=== PATIENT | male | born 1960 | race Two or more races ===

== ENCOUNTER 2019-03-14 14:45 | Inpatient (IN) | payer MEDICAID, MEDICARE, OTHER ==
[~2019-03-14] VITALS: Ht 167.6 cm; Wt 99.6 kg
[2019-03-14 15:12] VITALS: BP 125/88
[2019-03-14] MEDS ORDERED: NITROGLYCERIN 0.4MG TABLET SL SL PRN ×3 (15:15→23:30)
[2019-03-14] MEDS ORDERED: ACETAMINOPHEN 325MG TABLET PO PRN (15:15)
[2019-03-14] MEDS ORDERED: ALPRAZOLAM 0.25 MG TABLET PO PRN (15:15)
[2019-03-14 15:17] VITALS: BP 125/88
[2019-03-14 16:00] VITALS: BP 110/68
[2019-03-14 16:16] LABS: CLARITY URINE CLEAR (CLEAR); COLOR URINE YELLOW (YELLOW); KETONES URINE NEGATIVE (NEGATIVE); LEUKOCYTE ESTERASE URINE NEGATIVE (NEGATIVE); NITRITE URINE NEGATIVE (NEGATIVE); OCCULT BLOOD URINE NEGATIVE (NEGATIVE); PH URINE 5.5 (4.5-8.0); PROTEIN URINE NEGATIVE (NEGATIVE); SPECIFIC GRAVITY URINE 1.012 (1.005-1.030)
[2019-03-14] MEDS: FUROSEMIDE 40MG/4ML VIAL IVP SCH (16:39)
[2019-03-14] MEDS: SPIRONOLACTONE 25MG TABLET PO SCH (16:39)
[2019-03-14] MEDS ORDERED: DEXTROSE 50% WATER 50ML SYRINGE IV PRN (16:45)
[2019-03-14] MEDS ORDERED: HYDROCODONE/ACETAMINOPHEN 5/325MG TABLET PO PRN (16:45)
[2019-03-14] MEDS ORDERED: ONDANSETRON HCL 4MG/2ML INJ IV PRN ×2 (16:45→23:30)
[2019-03-14] MEDS ORDERED: IPRATROPIUM/ALBUTEROL 0.5-3(2.5)MG/3ML NEB HHN PRN (16:45)
[2019-03-14] MEDS ORDERED: HEPARIN 25,000 UNITS PREMIX 500 ML IV SCH (17:15)
[2019-03-14] MEDS: BLOOD SUGAR DIAGNOSTIC STRIP TEST SCH ×2 (17:19→21:00)
[2019-03-14] MEDS: INSULIN LISPRO 100 UNITS/ML SUBCUT SCH ×2 (17:24→21:00)
[2019-03-14 18:00] VITALS: BP 98/64
[2019-03-14] MEDS ORDERED: PIPERACILLIN/TAZOBACTAM 3.375GM/50ML PREMIX IV SCH (18:00)
[2019-03-14 20:00] VITALS: BP 112/74
[2019-03-14] MEDS ORDERED: PIPERACILLIN/TAZOBACTAM 3.375 G in DEXT 5% WATER 100 ML IV SCH (20:30)
[2019-03-14] MEDS: ATORVASTATIN CALCIUM 40MG TABLET PO SCH (20:59)
[2019-03-14] MEDS ORDERED: VANCOMYCIN 2,000 MG in DEXT 5% WATER 500 ML IV SCH (21:00)
[2019-03-14] MEDS: CARVEDILOL 3.125 MG TABLET PO SCH (21:00)
[2019-03-14] MEDS ORDERED: FAMOTIDINE 20MG TABLET PO SCH (21:00)
[2019-03-14] MEDS ORDERED: ATORVASTATIN CALCIUM 10MG TABLET PO SCH (21:00)
[2019-03-14 21:11] LABS: CHLORIDE 102 mEq/L (98-107)
[2019-03-14] MEDS ORDERED: FAMOTIDINE 40MG TABLET PO SCH (21:13)
[2019-03-14 21:18] LABS: INR 1.2; PARTIAL THROMBOPLASTIN TIME 26.8 sec (23.4-31.0); PROTHROMBIN TIME 12.4 sec (9.6-11.0)
[2019-03-14 22:00] VITALS: BP 98/74
[2019-03-14 22:08] LABS: BASOPHILS % 0.6 % (0.0-2.0); EOSINOPHILS % 0.9 % (0.0-5.0); HEMATOCRIT. 45.4 % (42.0-52.0); HEMOGLOBIN. 15.1 g/dL (14.0-18.0); LYMPHOCYTES % 16.4 % (20.0-50.0); MEAN CORPUSCULAR HEMOGLOBIN 29.8 pg (28.0-32.0); MEAN CORPUSCULAR VOLUME 89.6 fL (80.0-94.0); MEAN PLATELET VOLUME 9.2 fl (7.4-10.4); MONOCYTES % 9.8 % (2.0-8.0); NEUTROPHILS % 72.3 % (40.0-76.0); PLATELET 214 x1000/uL (130-400); RED BLOOD CELL COUNT 5.07 mill/uL (4.7-6.1); RED CELL DISTRIBUTION WIDTH 13.9 % (11.6-14.6)
[2019-03-14] MEDS: HEPARIN BOLUS PRN aPTT <30 IV (22:29)
[2019-03-14] MEDS: HEPARIN 25,000 UNITS PREMIX 500 ML IV SCH (22:35)
[2019-03-14] MEDS: AMMONIUM LACTATE 12% LOTION 240ML TOP SCH (22:47)
[2019-03-14] MEDS ORDERED: NA PHOS,M-B/NA PHOS,DI-BA ENEMA 118ML PR PRN (23:30)
[2019-03-14] MEDS ORDERED: MORPHINE SULFATE 4 MG/ML CPJ (NOT FOR IM USE) IV PRN (23:30)
[2019-03-14] MEDS ORDERED: LORAZEPAM 0.5MG TABLET PO PRN (23:30)
[2019-03-14] MEDS ORDERED: IPRATROPIUM/ALBUTEROL 0.5-3(2.5)MG/3ML NEB NEB PRN (23:30)
[2019-03-14] MEDS ORDERED: TRAMADOL 50MG TABLET PO PRN (23:30)
[2019-03-14] MEDS ORDERED: GUAIFENESIN 200MG/10ML SUGAR FREE UDC PO PRN (23:30)
[2019-03-14] MEDS ORDERED: DOCUSATE SODIUM 100MG CAPSULE PO PRN (23:30)
[2019-03-14] MEDS ORDERED: CLONIDINE 0.1MG TABLET PO PRN (23:30)
[2019-03-14] MEDS ORDERED: ZOLPIDEM TARTRATE 5MG TABLET PO PRN (23:30)
[2019-03-14] MEDS ORDERED: MAGNESIUM/ALUMINUM HYDROXIDE/SIMETHICONE 30ML UDC PO PRN (23:30)
[2019-03-14] MEDS ORDERED: DIPHENHYDRAMINE 50MG/ML VIAL IV PRN (23:30)
[2019-03-15] VITALS (12 sets, daily range): BP systolic 95–127; BP diastolic 57–91
[2019-03-15] MEDS: PIPERACILLIN/TAZOBACTAM 3.375 G in DEXT 5% WATER 100 ML IV SCH ×4 (02:54→22:59)
[2019-03-15 04:49] LABS: BASOPHILS % 0.8 % (0.0-2.0); EOSINOPHILS % 1.7 % (0.0-5.0); HEMATOCRIT. 44.3 % (42.0-52.0); HEMOGLOBIN. 14.7 g/dL (14.0-18.0); LYMPHOCYTES % 19.1 % (20.0-50.0); MEAN CORPUSCULAR HEMOGLOBIN 29.9 pg (28.0-32.0); MEAN CORPUSCULAR VOLUME 89.8 fL (80.0-94.0); MEAN PLATELET VOLUME 9.4 fl (7.4-10.4); MONOCYTES % 8.8 % (2.0-8.0); NEUTROPHILS % 69.6 % (40.0-76.0); PLATELET 187 x1000/uL (130-400); RED BLOOD CELL COUNT 4.93 mill/uL (4.7-6.1)
[2019-03-15 04:59] LABS: CHLORIDE 102 mEq/L (98-107)
[2019-03-15] MEDS: HEPARIN BOLUS PRN aPTT <30 IV (06:10)
[2019-03-15] MEDS: BLOOD SUGAR DIAGNOSTIC STRIP TEST SCH ×4 (06:20→22:42)
[2019-03-15] MEDS: FUROSEMIDE 40MG/4ML VIAL IVP SCH (08:06)
[2019-03-15] MEDS: INSULIN LISPRO 100 UNITS/ML SUBCUT SCH ×4 (08:06→22:58)
[2019-03-15] MEDS: PANTOPRAZOLE SODIUM 40 MG/VIAL IV SCH (08:06)
[2019-03-15] MEDS: NICOTINE 14MG PATCH TD SCH (08:07)
[2019-03-15] MEDS: AMMONIUM LACTATE 12% LOTION 240ML TOP SCH ×2 (08:07→16:18)
[2019-03-15] MEDS: LISINOPRIL 10MG TABLET PO SCH (08:23)
[2019-03-15] MEDS: CARVEDILOL 3.125 MG TABLET PO SCH ×2 (08:23→22:56)
[2019-03-15] MEDS ORDERED: VANCOMYCIN 750 MG PREMIX 150 ML IV SCH (09:00)
[2019-03-15] MEDS: ASPIRIN 81MG EC TABLET PO SCH ×2 (09:00→14:07)
[2019-03-15] MEDS: SPIRONOLACTONE 25MG TABLET PO SCH (09:11)
[2019-03-15] MEDS: NITROGLYCERIN 0.1MG/HR PATCH TOP SCH (11:00)
[2019-03-15] MEDS ORDERED: MAGNESIUM 4 G PREMIX 100 ML IV NR (15:00)
[2019-03-15] MEDS: HEPARIN BOLUS PRN aPTT 30-44 IV ×2 (15:12→22:28)
[2019-03-15] MEDS: FUROSEMIDE 100MG/10ML VIAL IVP SCH (16:17)
[2019-03-15] MEDS: VANCOMYCIN 1250MG in DEXTROSE 5% WATER 250ML IV SCH ×2 (17:04→22:06)
[2019-03-15] MEDS: HEPARIN 25,000 UNITS PREMIX 500 ML IV SCH (20:12)
[2019-03-15] MEDS: ATORVASTATIN CALCIUM 40MG TABLET PO SCH (22:55)
[2019-03-16] VITALS (13 sets, daily range): BP systolic 92–143; BP diastolic 17–88
[2019-03-16] MEDS: PIPERACILLIN/TAZOBACTAM 3.375 G in DEXT 5% WATER 100 ML IV SCH ×4 (03:27→20:04)
[2019-03-16] MEDS: BLOOD SUGAR DIAGNOSTIC STRIP TEST SCH ×4 (06:17→21:00)
[2019-03-16 06:25] LABS: CHLORIDE 98 mEq/L (98-107)
[2019-03-16 06:52] LABS: BASOPHILS % 0.6 % (0.0-2.0); EOSINOPHILS % 2.2 % (0.0-5.0); HEMATOCRIT. 44.5 % (42.0-52.0); LYMPHOCYTES % 18.6 % (20.0-50.0); MEAN CORPUSCULAR HEMOGLOBIN 29.9 pg (28.0-32.0); MEAN CORPUSCULAR VOLUME 88.7 fL (80.0-94.0); MONOCYTES % 10.1 % (2.0-8.0); NEUTROPHILS % 68.5 % (40.0-76.0); PLATELET 215 x1000/uL (130-400); RED BLOOD CELL COUNT 5.02 mill/uL (4.7-6.1); RED CELL DISTRIBUTION WIDTH 13.7 % (11.6-14.6)
[2019-03-16] MEDS: FUROSEMIDE 100MG/10ML VIAL IVP SCH ×2 (07:02→17:33)
[2019-03-16] MEDS: INSULIN LISPRO 100 UNITS/ML SUBCUT SCH ×4 (07:40→21:16)
[2019-03-16] MEDS: AMMONIUM LACTATE 12% LOTION 240ML TOP SCH ×2 (08:47→17:00)
[2019-03-16] MEDS: NITROGLYCERIN 0.1MG/HR PATCH TOP SCH (08:47)
[2019-03-16] MEDS: NICOTINE 14MG PATCH TD SCH (08:47)
[2019-03-16] MEDS: VANCOMYCIN 1250MG in DEXTROSE 5% WATER 250ML IV SCH ×2 (08:47→21:15)
[2019-03-16] MEDS: ASPIRIN 81MG EC TABLET PO SCH (08:47)
[2019-03-16] MEDS: PANTOPRAZOLE SODIUM 40 MG/VIAL IV SCH (08:47)
[2019-03-16] MEDS: SPIRONOLACTONE 25MG TABLET PO SCH (08:48)
[2019-03-16] MEDS: LISINOPRIL 10MG TABLET PO SCH (08:48)
[2019-03-16] MEDS: CARVEDILOL 3.125 MG TABLET PO SCH ×2 (08:48→21:16)
[2019-03-16] MEDS ORDERED: MAGNESIUM 4 G PREMIX 100 ML IV NR (12:00)
[2019-03-16] MEDS: HEPARIN 25,000 UNITS PREMIX 500 ML IV SCH (13:36)
[2019-03-16] MEDS: HEPARIN BOLUS PRN aPTT 30-44 IV (13:43)
[2019-03-16] MEDS: ATORVASTATIN CALCIUM 40MG TABLET PO SCH (21:15)
[2019-03-17] VITALS (12 sets, daily range): BP systolic 97–122; BP diastolic 61–78
[2019-03-17] MEDS: PIPERACILLIN/TAZOBACTAM 3.375 G in DEXT 5% WATER 100 ML IV SCH ×4 (02:52→21:19)
[2019-03-17] MEDS: HEPARIN 25,000 UNITS PREMIX 500 ML IV SCH ×2 (04:02→19:18)
[2019-03-17] MEDS: BLOOD SUGAR DIAGNOSTIC STRIP TEST SCH ×4 (06:34→21:00)
[2019-03-17] MEDS: FUROSEMIDE 100MG/10ML VIAL IVP SCH (08:03)
[2019-03-17] MEDS: INSULIN LISPRO 100 UNITS/ML SUBCUT SCH ×4 (08:04→21:15)
[2019-03-17] MEDS: NITROGLYCERIN 0.1MG/HR PATCH TOP SCH (08:47)
[2019-03-17] MEDS: NICOTINE 14MG PATCH TD SCH (08:47)
[2019-03-17] MEDS: PANTOPRAZOLE SODIUM 40 MG/VIAL IV SCH (08:47)
[2019-03-17] MEDS: VANCOMYCIN 1250MG in DEXTROSE 5% WATER 250ML IV SCH ×2 (08:47→22:30)
[2019-03-17] MEDS: ASPIRIN 81MG EC TABLET PO SCH (08:48)
[2019-03-17] MEDS: CARVEDILOL 3.125 MG TABLET PO SCH ×2 (08:48→21:00)
[2019-03-17] MEDS: LISINOPRIL 10MG TABLET PO SCH (08:49)
[2019-03-17] MEDS: AMMONIUM LACTATE 12% LOTION 240ML TOP SCH ×2 (08:50→17:00)
[2019-03-17] MEDS: SPIRONOLACTONE 25MG TABLET PO SCH (08:51)
[2019-03-17] MEDS ORDERED: INSULIN GLARGINE UD 100 UNITS/ML SYR SUBCUT SCH (10:00)
[2019-03-17] MEDS ORDERED: MINERAL OIL 30ML BOTTLE PO NR (14:00)
[2019-03-17 14:10] LABS: CHLORIDE 94 mEq/L (98-107)
[2019-03-17 14:35] LABS: BASOPHILS % 1.2 % (0.0-2.0); EOSINOPHILS % 2.7 % (0.0-5.0); HEMATOCRIT. 49.3 % (42.0-52.0); HEMOGLOBIN. 16.6 g/dL (14.0-18.0); LYMPHOCYTES % 18.1 % (20.0-50.0); MEAN CORPUSCULAR VOLUME 89.4 fL (80.0-94.0); MEAN PLATELET VOLUME 9.3 fl (7.4-10.4); MONOCYTES % 10.7 % (2.0-8.0); NEUTROPHILS % 67.3 % (40.0-76.0); PLATELET 246 x1000/uL (130-400); RED BLOOD CELL COUNT 5.52 mill/uL (4.7-6.1)
[2019-03-17] MEDS ORDERED: FUROSEMIDE 40MG/4ML VIAL IVP SCH (17:15)
[2019-03-17] MEDS ORDERED: MAGNESIUM 4 G PREMIX 100 ML IV SCH (20:00)
[2019-03-17] MEDS ORDERED: ASCORBIC ACID 500 MG TABLET PO SCH (21:00)
[2019-03-17] MEDS ORDERED: CHLORHEXIDINE GLUCONATE 4% EXTERNAL USE TOP SCH (21:00)
[2019-03-17] MEDS ORDERED: DIPHENHYDRAMINE 25MG CAPSULE PO PRN (21:00)
[2019-03-17] MEDS ORDERED: DOCUSATE SODIUM 100MG CAPSULE PO SCH (21:00)
[2019-03-17] MEDS ORDERED: BISACODYL 10MG SUPP PR PRN (21:00)
[2019-03-17] MEDS: ALLOPURINOL 300 MG TABLET PO SCH (21:12)
[2019-03-17] MEDS: ATORVASTATIN CALCIUM 40MG TABLET PO SCH ×2 (21:12→21:19)
[2019-03-18] VITALS (41 sets, daily range): BP systolic 0–173; BP diastolic 0–119
[2019-03-18] MEDS: PIPERACILLIN/TAZOBACTAM 3.375 G in DEXT 5% WATER 100 ML IV SCH ×3 (02:58→20:32)
[2019-03-18] MEDS: INSULIN LISPRO 100 UNITS/ML SUBCUT SCH (03:45)
[2019-03-18 05:03] LABS: HEMOGLOBIN 16.5 g/dL (14.0-18.0); MEAN CORPUSCULAR HEMOGLOBIN 29.7 pg (28.0-32.0); MEAN CORPUSCULAR VOLUME 88.3 fL (80.0-94.0); PLATELET 246 x1000/uL (130-400); RED BLOOD CELL COUNT 5.54 mill/uL (4.7-6.1); RED CELL DISTRIBUTION WIDTH 13.8 % (11.6-14.6)
[2019-03-18 05:09] LABS: CHLORIDE 97 mEq/L (98-107)
[2019-03-18] MEDS: ALLOPURINOL 300 MG TABLET PO SCH (05:30)
[2019-03-18] MEDS: CHLORHEXIDINE GLUCONATE 4% EXTERNAL USE TOP SCH (05:39)
[2019-03-18] MEDS ORDERED: ACETAMINOPHEN 500MG TABLET PO SCH (05:40)
[2019-03-18] MEDS ORDERED: DILTIAZEM HCL 5MG/ML 5ML VIAL IV SCH (06:00)
[2019-03-18] MEDS ORDERED: PHENYLEPHRINE 10 MG in DEXT 5% WATER 249 ML IV SCH (06:00)
[2019-03-18] MEDS ORDERED: INSULIN REGULAR (DRIP) 100 UNITS in SODIUM CHLORIDE 0.9% 99 ML IV SCH (06:00)
[2019-03-18] MEDS ORDERED: CEFAZOLIN 2,000 MG in DEXT 5% WATER 100 ML IV SCH ×2 (06:00→07:30)
[2019-03-18] MEDS ORDERED: DEL NIDO ELECTROLYTE-S(PH 7.4) 1,000 ML IV SCH ×2 (06:00)
[2019-03-18] MEDS ORDERED: AMINOCAPROIC ACID 10,000 MG in SODIUM CHLORIDE 0.9% 460 ML IV SCH (06:00)
[2019-03-18] MEDS ORDERED: NOREPINEPHRINE 4 MG in DEXT 5% WATER 246 ML IV SCH (06:00)
[2019-03-18] MEDS ORDERED: EPINEPHRINE 4 MG in DEXT 5% WATER 246 ML IV SCH (06:00)
[2019-03-18] MEDS ORDERED: PAPAVERINE HCL 180MG in SODIUM CHLORIDE 0.9% 24ML IV SCH (06:00)
[2019-03-18] MEDS: BLOOD SUGAR DIAGNOSTIC STRIP TEST SCH ×9 (06:50→22:43)
[2019-03-18] MEDS ORDERED: DOPAMINE 400MG/250ML PREMIX 250 ML IV ONE (07:18)
[2019-03-18] MEDS ORDERED: BACITRACIN 15GM TUBE TOP ONE (07:29)
[2019-03-18] MEDS ORDERED: SKIN ADHESIVE 0.7 GM EA TOP ONE (07:29)
[2019-03-18] MEDS ORDERED: VANCOMYCIN 1,500 MG in DEXT 5% WATER 250 ML IV SCH (07:30)
[2019-03-18] MEDS ORDERED: BACITRACIN 50,000 UNITS/VIAL ONE (07:30)
[2019-03-18] MEDS ORDERED: THROMBIN (BOVINE) 5000 UNITS/VIAL TOP ONE (07:30)
[2019-03-18] MEDS ORDERED: HEPARIN 1000 UNITS/ML 10ML ONE ×3 (07:32→09:09)
[2019-03-18 07:34] LABS: INR 1.2; PARTIAL THROMBOPLASTIN TIME 28.7 sec (23.4-31.0)
[2019-03-18] MEDS ORDERED: PROPOFOL 200MG/20ML VIAL IV ONE (07:45)
[2019-03-18] MEDS ORDERED: FENTANYL CITRATE/PF 50MCG/ML 5ML VIAL ONE (07:45)
[2019-03-18] MEDS ORDERED: ROCURONIUM BROMIDE 10MG/ML VIAL 5ML IV ONE ×3 (07:45→12:13)
[2019-03-18] MEDS ORDERED: MIDAZOLAM HCL 2 MG/2 ML VIAL ONE (07:45)
[2019-03-18] MEDS ORDERED: ETOMIDATE 2MG/ML 10ML VIAL IV ONE (07:49)
[2019-03-18] MEDS ORDERED: STERILE WATER FOR INJECTION 10ML VIAL ONE (07:50)
[2019-03-18] MEDS ORDERED: PHENYLEPHRINE HCL 10 MG/ML 1ML (IV VIAL) IV ONE ×2 (07:50→08:27)
[2019-03-18] MEDS ORDERED: ACETAMINOPHEN 500MG TABLET ONE (07:53)
[2019-03-18] MEDS ORDERED: ESMOLOL HCL 10MG/ML 10ML VIAL IV ONE (07:59)
[2019-03-18] MEDS ORDERED: CALCIUM CHLORIDE 1GM/10ML SYR IV ONE (08:27)
[2019-03-18] MEDS ORDERED: MANNITOL 20% 500 ML IV ONE (08:27)
[2019-03-18] MEDS ORDERED: MAGNESIUM SULFATE 5GM/10ML VIAL IV ONE (08:27)
[2019-03-18] MEDS ORDERED: ALBUMIN HUMAN 25GM/100ML (25%) IV ONE (08:27)
[2019-03-18] MEDS ORDERED: AMINOCAPROIC ACID 250 MG/ML 20ML VIAL ONE ×2 (08:27→10:08)
[2019-03-18] MEDS ORDERED: HEPARIN 10,000 UNITS/ML VIAL ONE (08:28)
[2019-03-18] MEDS ORDERED: SODIUM BICARBONATE 8.4% 1 MEQ/ML 50ML SYR IV ONE ×2 (08:28→08:29)
[2019-03-18] MEDS ORDERED: LABETALOL HCL 5MG/ML VIAL 20ML IV ONE (09:50)
[2019-03-18] MEDS ORDERED: DEXMEDETOMIDINE 400 MCG/100 ML 100 ML IV ONE (10:13)
[2019-03-18] MEDS ORDERED: PROTAMINE SULFATE 10MG/ML VIAL 25ML IV ONE (12:43)
[2019-03-18] MEDS ORDERED: PROPOFOL 10MG/ML 100ML 100 ML IV ONE (12:54)
[2019-03-18] MEDS ORDERED: CEFAZOLIN SODIUM 1000MG/VIAL ONE (13:18)
[2019-03-18] MEDS ORDERED: SODIUM CHLORIDE 0.9% 10ML VIAL ONE (13:18)
[2019-03-18] MEDS ORDERED: KETOROLAC 30MG/ML VIAL ONE (13:21)
[2019-03-18] MEDS ORDERED: NEOSTIGMINE METHYLSULFATE 1MG/ML 10 ML VIAL ONE (13:49)
[2019-03-18] MEDS ORDERED: SODIUM CHLORIDE 0.9% 500 ML IV PRN (13:51)
[2019-03-18] MEDS ORDERED: MAGNESIUM SULFATE 3 GM in DEXT 5% WATER 100 ML IV PRN (14:00)
[2019-03-18] MEDS ORDERED: ALBUMIN HUMAN 25GM/100ML (25%) IV PRN (14:00)
[2019-03-18] MEDS ORDERED: CALCIUM CHLORIDE 5,000 MG in DEXT 5% WATER 500 ML IV PRN (14:00)
[2019-03-18] MEDS ORDERED: KETOROLAC 15MG/ML VIAL IV SCH (14:00)
[2019-03-18] MEDS ORDERED: MORPHINE SULFATE 2 MG/ML CPJ (NOT FOR IM USE) IV PRN ×2 (14:00→22:00)
[2019-03-18] MEDS ORDERED: MAGNESIUM 2 G PREMIX 50 ML IV PRN (14:00)
[2019-03-18] MEDS ORDERED: ALBUMIN HUMAN 12.5G/250ML (5%) IV PRN (14:00)
[2019-03-18 14:24] LABS: BG BASE EXCESS 1.6 mmol/L (-2.0-2.0); BG DEOXYHEMOGLOBIN 0.7 % (0.0-5.0); BG FRACTION INSPIRED OXYGEN 100; BG HCO3 ACT 26.4 mmol/L (22.0-26.0); BG METHEMOGLOBIN 0.6 % (0.0-1.5); BG OXYGEN SATURATION 99.3 % (92.0-98.5); BG OXYHEMOGLOBIN 97.7 % (94.0-97.0); BG PCO2 41.9 mmHg (35.0-45.0); BG PH 7.417 (7.350-7.450); BG PO2 200.8 mmHg (75.0-100.0); BG SAMPLE SITE A-LINE; BG TIDAL VOLUME(mL) 500 mL; BG TOTAL HEMOGLOBIN 15.6 g/dL (12.0-18.0); BG VENT MODE VENT - A/C; BG VENT RATE 16 set
[2019-03-18] MEDS ORDERED: EPINEPHRINE 4 MG in DEXT 5% WATER 246 ML IV PRN (14:30)
[2019-03-18] MEDS: ACETAMINOPHEN 325MG TABLET PO PRN (14:39)
[2019-03-18 14:42] LABS: HEMATOCRIT. 43.8 % (42.0-52.0); HEMOGLOBIN. 14.8 g/dL (14.0-18.0); MEAN CORPUSCULAR HEMOGLOBIN 29.5 pg (28.0-32.0); MEAN CORPUSCULAR VOLUME 87.6 fL (80.0-94.0); MEAN PLATELET VOLUME 8.7 fl (7.4-10.4); PLATELET 231 x1000/uL (130-400); RED CELL DISTRIBUTION WIDTH 13.7 % (11.6-14.6)
[2019-03-18 14:45] LABS: INR 1.2; PARTIAL THROMBOPLASTIN TIME 27.3 sec (23.4-31.0); PROTHROMBIN TIME 12.1 sec (9.6-11.0)
[2019-03-18 15:26] LABS: PLATELET ESTIMATE NORMAL
[2019-03-18] MEDS: DOPAMINE 400MG/250ML PREMIX 250 ML IV PRN (15:29)
[2019-03-18] MEDS ORDERED: DEXTROSE 50% WATER 50ML SYRINGE IV PRN ×2 (15:45)
[2019-03-18] MEDS ORDERED: DEXT 5%/0.45% NACL 1000ML 1,000 ML IV SCH (15:45)
[2019-03-18] MEDS: EPINEPHRINE 1 MG in DEXT 5% WATER 249 ML IV PRN ×2 (16:28→19:27)
[2019-03-18] MEDS ORDERED: PROTAMINE SULFATE 10MG/ML VIAL 5ML IV NR (16:30)
[2019-03-18] MEDS: DOCUSATE SODIUM 100MG CAPSULE PO SCH (16:36)
[2019-03-18 16:39] LABS: BG CARBOXYHEMOGLOBIN 1.2 % (0.5-1.5); BG DEOXYHEMOGLOBIN 1.5 % (0.0-5.0); BG FRACTION INSPIRED OXYGEN 40; BG HCO3 ACT 25.7 mmol/L (22.0-26.0); BG METHEMOGLOBIN 0.5 % (0.0-1.5); BG OXYGEN SATURATION 98.5 % (92.0-98.5); BG OXYHEMOGLOBIN 96.8 % (94.0-97.0); BG PCO2 37.3 mmHg (35.0-45.0); BG PH 7.456 (7.350-7.450); BG PO2 123.3 mmHg (75.0-100.0); BG PRESSURE SUPPORT 15; BG SAMPLE SITE A-LINE; BG TOTAL HEMOGLOBIN 15.7 g/dL (12.0-18.0); BG VENT MODE VENT - CPAP
[2019-03-18] MEDS: BACITRACIN 15GM TUBE TOP SCH (17:00)
[2019-03-18] MEDS: IPRATROPIUM/ALBUTEROL 0.5-3(2.5)MG/3ML NEB HHN SCH ×2 (17:26→21:09)
[2019-03-18] MEDS ORDERED: FUROSEMIDE 40MG/4ML VIAL IVP NR (17:30)
[2019-03-18] MEDS: MAGNESIUM 1 G PREMIX 100 ML IV PRN (19:25)
[2019-03-18] MEDS: INSULIN REGULAR (DRIP) 100 UNITS in SODIUM CHLORIDE 0.9% 99 ML IV SCH (19:26)
[2019-03-18] MEDS ORDERED: ALBUMIN HUMAN 25GM/100ML (25%) IV SCH (20:15)
[2019-03-18] MEDS ORDERED: KCL 10MEQ/50ML PREMIX 200 ML IV PRN (20:30)
[2019-03-18] MEDS ORDERED: KCL 10MEQ/50ML PREMIX 150 ML IV PRN (20:30)
[2019-03-18] MEDS ORDERED: POTASSIUM CHLORIDE INJ 40 MEQ in DEXT 5% WATER 250 ML IV NR (21:30)
[2019-03-18] MEDS: CEFAZOLIN 1000MG PREMIX 50 ML IV SCH (22:09)
[2019-03-18] MEDS: VANCOMYCIN 1250MG in DEXTROSE 5% WATER 250ML IV SCH (22:09)
[2019-03-18] MEDS: ALBUMIN HUMAN 25GM/100ML (25%) IV SCH (22:43)
[2019-03-18] MEDS: EPINEPHRINE 4 MG in SODIUM CHLORIDE 0.9% 246 ML IV PRN (23:03)
[2019-03-18] MEDS: ONDANSETRON HCL 4MG/2ML INJ IV PRN (23:56)
[2019-03-19] VITALS (111 sets, daily range): BP systolic 78–167; BP diastolic 36–94
[2019-03-19] MEDS: BLOOD SUGAR DIAGNOSTIC STRIP TEST SCH ×24 (00:11→23:13)
[2019-03-19 00:37] LABS: HEMATOCRIT. 37.6 % (42.0-52.0); HEMOGLOBIN. 12.5 g/dL (14.0-18.0); MEAN CORPUSCULAR HEMOGLOBIN 29.4 pg (28.0-32.0); MEAN CORPUSCULAR VOLUME 88.7 fL (80.0-94.0); MEAN PLATELET VOLUME 8.7 fl (7.4-10.4); PLATELET 164 x1000/uL (130-400); RED BLOOD CELL COUNT 4.24 mill/uL (4.7-6.1); RED CELL DISTRIBUTION WIDTH 13.4 % (11.6-14.6)
[2019-03-19] MEDS: IPRATROPIUM/ALBUTEROL 0.5-3(2.5)MG/3ML NEB HHN SCH ×6 (00:43→20:10)
[2019-03-19] MEDS: ALBUMIN HUMAN 25GM/100ML (25%) IV SCH ×5 (00:51→23:21)
[2019-03-19] MEDS: KCL 10MEQ/50ML PREMIX 100 ML IV PRN (01:01)
[2019-03-19] MEDS: DOPAMINE 400MG/250ML PREMIX 250 ML IV PRN ×2 (03:43→23:13)
[2019-03-19] MEDS: CEFAZOLIN 1000MG PREMIX 50 ML IV SCH ×2 (05:58→15:02)
[2019-03-19 06:15] LABS: BASOPHILS % 0.5 % (0.0-2.0); HEMATOCRIT. 35.8 % (42.0-52.0); HEMOGLOBIN. 12.2 g/dL (14.0-18.0); LYMPHOCYTES % 4.4 % (20.0-50.0); MEAN CORPUSCULAR HEMOGLOBIN 30.1 pg (28.0-32.0); MEAN CORPUSCULAR VOLUME 88.3 fL (80.0-94.0); NEUTROPHILS % 81.1 % (40.0-76.0); RED BLOOD CELL COUNT 4.05 mill/uL (4.7-6.1); RED CELL DISTRIBUTION WIDTH 13.6 % (11.6-14.6)
[2019-03-19] MEDS: ONDANSETRON HCL 4MG/2ML INJ IV PRN ×3 (06:54→23:53)
[2019-03-19 07:06] LABS: MEAN PLATELET VOLUME 9.2 fl (7.4-10.4); PLATELET 176 x1000/uL (130-400)
[2019-03-19] MEDS: CHLORHEXIDINE GLUCONATE 4% EXTERNAL USE TOP SCH (09:00)
[2019-03-19] MEDS ORDERED: SPIRONOLACTONE 25MG TABLET PO SCH (09:30)
[2019-03-19] MEDS: FUROSEMIDE 40MG/4ML VIAL IVP SCH (09:57)
[2019-03-19] MEDS: ASPIRIN 81MG TABLET PO SCH (09:57)
[2019-03-19] MEDS: BACITRACIN 15GM TUBE TOP SCH ×2 (09:58→16:01)
[2019-03-19] MEDS: DOCUSATE SODIUM 100MG CAPSULE PO SCH ×2 (10:01→17:00)
[2019-03-19] MEDS: EPINEPHRINE 4 MG in SODIUM CHLORIDE 0.9% 246 ML IV PRN (10:11)
[2019-03-19 14:38] LABS: PLATELET ESTIMATE NORMAL
[2019-03-19 15:18] LABS: CHLORIDE 96 mEq/L (98-107)
[2019-03-19 15:20] LABS: HEMATOCRIT 32.6 % (42.0-52.0); MEAN CORPUSCULAR HEMOGLOBIN 29.8 pg (28.0-32.0); MEAN CORPUSCULAR VOLUME 88.7 fL (80.0-94.0); PLATELET 146 x1000/uL (130-400); RED BLOOD CELL COUNT 3.68 mill/uL (4.7-6.1); RED CELL DISTRIBUTION WIDTH 14.1 % (11.6-14.6)
[2019-03-19] MEDS: ACETAMINOPHEN 325MG TABLET PO PRN (15:42)
[2019-03-19] MEDS: MAGNESIUM 1 G PREMIX 100 ML IV PRN (15:43)
[2019-03-19 15:51] LABS: HEMOGLOBIN 10.9 g/dL (14.0-18.0)
[2019-03-19] MEDS ORDERED: ALBUMIN HUMAN 25GM/500ML (5%) IV NR (16:00)
[2019-03-19] MEDS: INSULIN REGULAR (DRIP) 100 UNITS in SODIUM CHLORIDE 0.9% 99 ML IV SCH (17:35)
[2019-03-19] MEDS ORDERED: MORPHINE SULFATE 4 MG/ML CPJ (NOT FOR IM USE) IV PRN (20:00)
[2019-03-19] MEDS: ATORVASTATIN CALCIUM 40MG TABLET PO SCH (21:07)
[2019-03-19] MEDS ORDERED: FUROSEMIDE 40MG/4ML VIAL IVP SCH (22:15)
[2019-03-19] MEDS: MORPHINE SULFATE 2 MG/ML CPJ (NOT FOR IM USE) IV PRN (23:53)
[2019-03-20] VITALS (127 sets, daily range): BP systolic 79–198; BP diastolic -1–97
[2019-03-20] MEDS: IPRATROPIUM/ALBUTEROL 0.5-3(2.5)MG/3ML NEB HHN SCH ×5 (00:10→21:02)
[2019-03-20] MEDS: BLOOD SUGAR DIAGNOSTIC STRIP TEST SCH ×25 (00:11→23:25)
[2019-03-20] MEDS: INSULIN REGULAR (DRIP) 100 UNITS in SODIUM CHLORIDE 0.9% 99 ML IV SCH ×2 (02:40→17:54)
[2019-03-20 06:18] LABS: HEMATOCRIT. 28.8 % (42.0-52.0); HEMOGLOBIN. 9.8 g/dL (14.0-18.0); MEAN CORPUSCULAR HEMOGLOBIN 30.1 pg (28.0-32.0); MEAN CORPUSCULAR VOLUME 88.6 fL (80.0-94.0); MEAN PLATELET VOLUME 9.3 fl (7.4-10.4); PLATELET 117 x1000/uL (130-400); RED BLOOD CELL COUNT 3.25 mill/uL (4.7-6.1); RED CELL DISTRIBUTION WIDTH 13.9 % (11.6-14.6)
[2019-03-20] MEDS: KCL 10MEQ/50ML PREMIX 100 ML IV PRN ×2 (06:31→16:11)
[2019-03-20] MEDS ORDERED: SODIUM CHLORIDE 0.9% 1,000 ML IV ONE (07:15)
[2019-03-20] MEDS: BACITRACIN 15GM TUBE TOP SCH ×2 (09:00→21:05)
[2019-03-20] MEDS: ASPIRIN 81MG TABLET PO SCH (09:04)
[2019-03-20] MEDS: FUROSEMIDE 40MG/4ML VIAL IVP SCH (09:04)
[2019-03-20] MEDS: DOCUSATE SODIUM 100MG CAPSULE PO SCH ×2 (09:04→18:45)
[2019-03-20] MEDS ORDERED: FUROSEMIDE IV ONE (09:30)
[2019-03-20] MEDS ORDERED: SODIUM CHLORIDE 0.9% IV ONE (09:30)
[2019-03-20] MEDS: BUDESONIDE 0.5MG/2ML NEB HHN SCH (12:54)
[2019-03-20 13:48] LABS: PLATELET ESTIMATE NORMAL
[2019-03-20] MEDS: ATORVASTATIN CALCIUM 40MG TABLET PO SCH (20:40)
[2019-03-20] MEDS: DOPAMINE 400MG/250ML PREMIX 250 ML IV PRN (21:05)
[2019-03-21] VITALS (68 sets, daily range): BP systolic 83–132; BP diastolic 38–79
[2019-03-21] MEDS: BLOOD SUGAR DIAGNOSTIC STRIP TEST SCH ×10 (00:38→20:12)
[2019-03-21] MEDS: ACETAMINOPHEN 325MG TABLET PO PRN (01:04)
[2019-03-21] MEDS: IPRATROPIUM/ALBUTEROL 0.5-3(2.5)MG/3ML NEB HHN SCH ×6 (01:07→20:15)
[2019-03-21] MEDS: BUDESONIDE 0.5MG/2ML NEB HHN SCH ×3 (01:08→20:15)
[2019-03-21] MEDS ORDERED: FUROSEMIDE 100MG/10ML VIAL IVP ONE (04:15)
[2019-03-21 05:47] LABS: BASOPHILS % 0.6 % (0.0-2.0); EOSINOPHILS % 0.4 % (0.0-5.0); HEMATOCRIT. 27.9 % (42.0-52.0); HEMOGLOBIN. 9.5 g/dL (14.0-18.0); LYMPHOCYTES % 7.7 % (20.0-50.0); MEAN CORPUSCULAR HEMOGLOBIN 30.2 pg (28.0-32.0); MEAN CORPUSCULAR VOLUME 88.7 fL (80.0-94.0); MEAN PLATELET VOLUME 9.2 fl (7.4-10.4); MONOCYTES % 11.7 % (2.0-8.0); NEUTROPHILS % 79.6 % (40.0-76.0); PLATELET 135 x1000/uL (130-400); RED BLOOD CELL COUNT 3.15 mill/uL (4.7-6.1); RED CELL DISTRIBUTION WIDTH 13.8 % (11.6-14.6)
[2019-03-21] MEDS: KCL 10MEQ/50ML PREMIX 100 ML IV PRN (06:00)
[2019-03-21] MEDS ORDERED: SODIUM CHLORIDE 0.9% IV NR (06:00)
[2019-03-21] MEDS ORDERED: FUROSEMIDE IV NR (06:00)
[2019-03-21] MEDS: MAGNESIUM 1 G PREMIX 100 ML IV PRN (06:13)
[2019-03-21] MEDS ORDERED: BLOOD SUGAR DIAGNOSTIC STRIP TEST SCH (09:00)
[2019-03-21] MEDS ORDERED: INSULIN GLARGINE UD 100 UNITS/ML SYR SUBCUT SCH (09:00)
[2019-03-21] MEDS: ASPIRIN 81MG TABLET PO SCH (09:16)
[2019-03-21] MEDS: DOCUSATE SODIUM 100MG CAPSULE PO SCH ×2 (09:16→16:43)
[2019-03-21] MEDS: BACITRACIN 15GM TUBE TOP SCH ×2 (09:16→16:44)
[2019-03-21] MEDS: FUROSEMIDE 40MG/4ML VIAL IVP SCH (09:55)
[2019-03-21] MEDS ORDERED: DEXTROSE 50% WATER 50ML SYRINGE IV PRN (12:15)
[2019-03-21] MEDS: INSULIN LISPRO 100 UNITS/ML SUBCUT SCH ×2 (13:29→20:00)
[2019-03-21] MEDS: MORPHINE SULFATE 2 MG/ML CPJ (NOT FOR IM USE) IV PRN (13:29)
[2019-03-21] MEDS ORDERED: INSULIN LISPRO 100 UNITS/ML SUBCUT NR (16:45)
[2019-03-21 20:50] LABS: CLARITY URINE TURBID (CLEAR); COLOR URINE ORANGE (YELLOW); KETONES URINE NEGATIVE (NEGATIVE); LEUKOCYTE ESTERASE URINE 1+ (NEGATIVE); NITRITE URINE NEGATIVE (NEGATIVE); OCCULT BLOOD URINE 3+ (NEGATIVE); PROTEIN URINE 2+ (NEGATIVE); SPECIFIC GRAVITY URINE 1.013 (1.005-1.030); UROBILINOGEN URINE 0.2 E.U./dL (0.2-1.0)
[2019-03-21] MEDS: ATORVASTATIN CALCIUM 40MG TABLET PO SCH (20:57)
[2019-03-22] VITALS (37 sets, daily range): BP systolic 98–151; BP diastolic 27–108
[2019-03-22] MEDS: IPRATROPIUM/ALBUTEROL 0.5-3(2.5)MG/3ML NEB HHN SCH ×6 (00:10→20:26)
[2019-03-22] MEDS: BLOOD SUGAR DIAGNOSTIC STRIP TEST SCH ×6 (03:36→20:00)
[2019-03-22] MEDS: INSULIN LISPRO 100 UNITS/ML SUBCUT SCH ×6 (03:36→22:06)
[2019-03-22 07:48] LABS: BASOPHILS % 0.3 % (0.0-2.0); EOSINOPHILS % 0.6 % (0.0-5.0); HEMATOCRIT. 30.2 % (42.0-52.0); HEMOGLOBIN. 10.1 g/dL (14.0-18.0); LYMPHOCYTES % 8.8 % (20.0-50.0); MEAN CORPUSCULAR HEMOGLOBIN 29.8 pg (28.0-32.0); MEAN CORPUSCULAR VOLUME 89.4 fL (80.0-94.0); MEAN PLATELET VOLUME 9.3 fl (7.4-10.4); MONOCYTES % 11.4 % (2.0-8.0); NEUTROPHILS % 78.9 % (40.0-76.0); PLATELET 185 x1000/uL (130-400); RED BLOOD CELL COUNT 3.38 mill/uL (4.7-6.1); RED CELL DISTRIBUTION WIDTH 13.7 % (11.6-14.6)
[2019-03-22] MEDS: BUDESONIDE 0.5MG/2ML NEB HHN SCH ×2 (08:30→20:28)
[2019-03-22] MEDS: BACITRACIN 15GM TUBE TOP SCH ×2 (08:48→16:50)
[2019-03-22] MEDS: ASPIRIN 81MG TABLET PO SCH (08:49)
[2019-03-22] MEDS: DOCUSATE SODIUM 100MG CAPSULE PO SCH ×2 (08:49→16:50)
[2019-03-22] MEDS ORDERED: MAGNESIUM 4 G PREMIX 100 ML IV SCH (13:00)
[2019-03-22] MEDS ORDERED: POLYETHYLENE GLYCOL 3350 (17GM) 1 DOSE PACK PO SCH (15:30)
[2019-03-22] MEDS: ATORVASTATIN CALCIUM 40MG TABLET PO SCH (21:03)
[2019-03-22] MEDS: MORPHINE SULFATE 2 MG/ML CPJ (NOT FOR IM USE) IV PRN (21:03)
[2019-03-22] MEDS: INSULIN GLARGINE UD 100 UNITS/ML SYR SUBCUT SCH (22:07)
[2019-03-23] VITALS (17 sets, daily range): BP systolic 106–151; BP diastolic 70–100
[2019-03-23] MEDS: BLOOD SUGAR DIAGNOSTIC STRIP TEST SCH ×6 (00:21→20:49)
[2019-03-23] MEDS: IPRATROPIUM/ALBUTEROL 0.5-3(2.5)MG/3ML NEB HHN SCH ×6 (00:34→21:08)
[2019-03-23] MEDS: INSULIN LISPRO 100 UNITS/ML SUBCUT SCH ×6 (00:35→21:40)
[2019-03-23 07:17] LABS: BASOPHILS % 0.7 % (0.0-2.0); EOSINOPHILS % 1.1 % (0.0-5.0); HEMATOCRIT. 29.5 % (42.0-52.0); HEMOGLOBIN. 10.1 g/dL (14.0-18.0); LYMPHOCYTES % 10.1 % (20.0-50.0); MEAN CORPUSCULAR HEMOGLOBIN 30.3 pg (28.0-32.0); MEAN CORPUSCULAR VOLUME 88.5 fL (80.0-94.0); MONOCYTES % 14.4 % (2.0-8.0); NEUTROPHILS % 73.7 % (40.0-76.0); PLATELET 227 x1000/uL (130-400); RED BLOOD CELL COUNT 3.33 mill/uL (4.7-6.1); RED CELL DISTRIBUTION WIDTH 13.9 % (11.6-14.6)
[2019-03-23 07:35] LABS: PHOSPHORUS 3.2 mg/dL (2.5-4.9)
[2019-03-23] MEDS: MORPHINE SULFATE 2 MG/ML CPJ (NOT FOR IM USE) IV PRN (07:45)
[2019-03-23 08:11] LABS: *CREATININE RANDOM URINE 103.9 mg/dL (Not Estab.); MICROALBUMIN RANDOM URINE 265.1 ug/mL (Not Estab.)
[2019-03-23] MEDS: ASPIRIN 81MG TABLET PO SCH (09:37)
[2019-03-23] MEDS: DOCUSATE SODIUM 100MG CAPSULE PO SCH ×2 (09:37→16:52)
[2019-03-23] MEDS: BACITRACIN 15GM TUBE TOP SCH ×2 (09:38→16:52)
[2019-03-23] MEDS: ONDANSETRON HCL 4MG/2ML INJ IV PRN (13:24)
[2019-03-23] MEDS ORDERED: MAGNESIUM 2 G PREMIX 50 ML IV SCH (14:00)
[2019-03-23] MEDS: BUDESONIDE 0.5MG/2ML NEB HHN SCH (21:06)
[2019-03-23] MEDS: ATORVASTATIN CALCIUM 40MG TABLET PO SCH (21:39)
[2019-03-23] MEDS: INSULIN GLARGINE UD 100 UNITS/ML SYR SUBCUT SCH (21:41)
[2019-03-24] VITALS (12 sets, daily range): BP systolic 102–152; BP diastolic 56–95
[2019-03-24] MEDS: BLOOD SUGAR DIAGNOSTIC STRIP TEST SCH ×6 (00:49→21:14)
[2019-03-24] MEDS: IPRATROPIUM/ALBUTEROL 0.5-3(2.5)MG/3ML NEB HHN SCH ×7 (01:04→20:57)
[2019-03-24] MEDS: MORPHINE SULFATE 2 MG/ML CPJ (NOT FOR IM USE) IV PRN ×2 (03:25→12:25)
[2019-03-24] MEDS: INSULIN LISPRO 100 UNITS/ML SUBCUT SCH ×6 (04:00→21:27)
[2019-03-24] MEDS: ASPIRIN 81MG TABLET PO SCH (08:25)
[2019-03-24] MEDS: DOCUSATE SODIUM 100MG CAPSULE PO SCH ×2 (08:25→17:19)
[2019-03-24] MEDS: BACITRACIN 15GM TUBE TOP SCH ×2 (08:26→17:20)
[2019-03-24 08:54] LABS: CHLORIDE 100 mEq/L (98-107)
[2019-03-24 08:56] LABS: BASOPHILS % 0.5 % (0.0-2.0); EOSINOPHILS % 1.1 % (0.0-5.0); HEMOGLOBIN. 10.7 g/dL (14.0-18.0); LYMPHOCYTES % 9.4 % (20.0-50.0); MEAN CORPUSCULAR HEMOGLOBIN 29.6 pg (28.0-32.0); MEAN CORPUSCULAR VOLUME 88.7 fL (80.0-94.0); MEAN PLATELET VOLUME 8.8 fl (7.4-10.4); MONOCYTES % 14.7 % (2.0-8.0); NEUTROPHILS % 74.3 % (40.0-76.0); PLATELET 264 x1000/uL (130-400); RED BLOOD CELL COUNT 3.61 mill/uL (4.7-6.1)
[2019-03-24 09:03] LABS: PHOSPHORUS 2.7 mg/dL (2.5-4.9)
[2019-03-24] MEDS ORDERED: MAGNESIUM 2 G PREMIX 50 ML IV SCH (11:00)
[2019-03-24] MEDS ORDERED: FUROSEMIDE 40MG/4ML VIAL IVP SCH (12:00)
[2019-03-24] MEDS: ATORVASTATIN CALCIUM 40MG TABLET PO SCH (21:16)
[2019-03-24] MEDS: INSULIN GLARGINE UD 100 UNITS/ML SYR SUBCUT SCH (21:28)
[2019-03-24] MEDS: OXYCODONE HCL/ACETAMINOPHEN 5/325MG TABLET PO PRN (23:40)
[2019-03-25] VITALS (12 sets, daily range): BP systolic 91–133; BP diastolic 48–79
[2019-03-25] MEDS: BLOOD SUGAR DIAGNOSTIC STRIP TEST SCH ×6 (00:32→21:16)
[2019-03-25] MEDS: INSULIN LISPRO 100 UNITS/ML SUBCUT SCH ×6 (00:33→21:37)
[2019-03-25] MEDS: IPRATROPIUM/ALBUTEROL 0.5-3(2.5)MG/3ML NEB HHN SCH ×6 (00:51→20:57)
[2019-03-25 06:57] LABS: HEMATOCRIT. 30.6 % (42.0-52.0); HEMOGLOBIN. 10.1 g/dL (14.0-18.0); MEAN CORPUSCULAR HEMOGLOBIN 29.7 pg (28.0-32.0); MEAN CORPUSCULAR VOLUME 89.5 fL (80.0-94.0); MEAN PLATELET VOLUME 8.4 fl (7.4-10.4); PLATELET 296 x1000/uL (130-400); RED BLOOD CELL COUNT 3.42 mill/uL (4.7-6.1); RED CELL DISTRIBUTION WIDTH 13.9 % (11.6-14.6)
[2019-03-25] MEDS: DOCUSATE SODIUM 100MG CAPSULE PO SCH ×2 (08:00→16:47)
[2019-03-25] MEDS: BACITRACIN 15GM TUBE TOP SCH ×2 (08:00→16:49)
[2019-03-25] MEDS: ASPIRIN 81MG TABLET PO SCH (08:00)
[2019-03-25 14:05] LABS: PLATELET ESTIMATE NORMAL
[2019-03-25] MEDS: LACTULOSE 20G/30ML UDC PO SCH ×2 (14:16→21:37)
[2019-03-25] MEDS: FUROSEMIDE 40MG TABLET PO SCH (14:16)
[2019-03-25] MEDS: SENNOSIDES 8.6MG TABLET PO SCH ×2 (17:25→21:38)
[2019-03-25] MEDS: INSULIN GLARGINE UD 100 UNITS/ML SYR SUBCUT SCH (21:37)
[2019-03-25] MEDS: ATORVASTATIN CALCIUM 40MG TABLET PO SCH (21:38)
[2019-03-26] VITALS (12 sets, daily range): BP systolic 89–131; BP diastolic 59–84
[2019-03-26] MEDS: IPRATROPIUM/ALBUTEROL 0.5-3(2.5)MG/3ML NEB HHN SCH ×6 (01:25→20:12)
[2019-03-26] MEDS: BLOOD SUGAR DIAGNOSTIC STRIP TEST SCH ×7 (04:28→23:30)
[2019-03-26] MEDS: INSULIN LISPRO 100 UNITS/ML SUBCUT SCH ×7 (04:28→23:30)
[2019-03-26 06:26] LABS: HEMATOCRIT. 30.9 % (42.0-52.0); HEMOGLOBIN. 10.4 g/dL (14.0-18.0); MEAN CORPUSCULAR HEMOGLOBIN 30.2 pg (28.0-32.0); MEAN CORPUSCULAR VOLUME 89.6 fL (80.0-94.0); MEAN PLATELET VOLUME 8.4 fl (7.4-10.4); PLATELET 305 x1000/uL (130-400); RED BLOOD CELL COUNT 3.45 mill/uL (4.7-6.1); RED CELL DISTRIBUTION WIDTH 13.9 % (11.6-14.6)
[2019-03-26] MEDS: BACITRACIN 15GM TUBE TOP SCH ×2 (09:36→17:34)
[2019-03-26] MEDS: DOCUSATE SODIUM 100MG CAPSULE PO SCH ×2 (09:37→17:31)
[2019-03-26] MEDS: ASPIRIN 81MG TABLET PO SCH (09:37)
[2019-03-26] MEDS: LACTULOSE 20G/30ML UDC PO SCH ×3 (09:37→21:07)
[2019-03-26] MEDS: FUROSEMIDE 40MG TABLET PO SCH (09:37)
[2019-03-26] MEDS: METOPROLOL TARTRATE 25MG TABLET PO SCH (12:03)
[2019-03-26] MEDS: OXYCODONE HCL/ACETAMINOPHEN 5/325MG TABLET PO PRN (12:04)
[2019-03-26] MEDS ORDERED: MAGNESIUM 2 G PREMIX 50 ML IV NR (12:30)
[2019-03-26 14:09] LABS: PLATELET ESTIMATE NORMAL
[2019-03-26] MEDS: ATORVASTATIN CALCIUM 40MG TABLET PO SCH (20:45)
[2019-03-26] MEDS: SENNOSIDES 8.6MG TABLET PO SCH (20:45)
[2019-03-26] MEDS ORDERED: INSULIN GLARGINE UD 100 UNITS/ML SYR SUBCUT SCH (22:00)
[2019-03-27] VITALS (12 sets, daily range): BP systolic 89–134; BP diastolic 56–87
[2019-03-27] MEDS: IPRATROPIUM/ALBUTEROL 0.5-3(2.5)MG/3ML NEB HHN SCH ×6 (00:44→21:54)
[2019-03-27] MEDS: INSULIN LISPRO 100 UNITS/ML SUBCUT SCH ×5 (04:00→21:01)
[2019-03-27] MEDS: BLOOD SUGAR DIAGNOSTIC STRIP TEST SCH ×6 (04:00→23:51)
[2019-03-27] MEDS: LACTULOSE 20G/30ML UDC PO SCH ×3 (05:04→21:02)
[2019-03-27 07:19] LABS: HEMATOCRIT. 28.5 % (42.0-52.0); HEMOGLOBIN. 9.9 g/dL (14.0-18.0); MEAN CORPUSCULAR HEMOGLOBIN 30.4 pg (28.0-32.0); MEAN CORPUSCULAR VOLUME 88.1 fL (80.0-94.0); MEAN PLATELET VOLUME 7.9 fl (7.4-10.4); PLATELET 292 x1000/uL (130-400); RED BLOOD CELL COUNT 3.24 mill/uL (4.7-6.1)
[2019-03-27 07:39] LABS: PHOSPHORUS 3.1 mg/dL (2.5-4.9)
[2019-03-27] MEDS: DOCUSATE SODIUM 100MG CAPSULE PO SCH ×2 (08:39→17:01)
[2019-03-27] MEDS: ASPIRIN 81MG TABLET PO SCH (08:39)
[2019-03-27] MEDS: FUROSEMIDE 40MG TABLET PO SCH (08:39)
[2019-03-27] MEDS: METOPROLOL TARTRATE 25MG TABLET PO SCH (08:42)
[2019-03-27] MEDS: BACITRACIN 15GM TUBE TOP SCH ×2 (08:43→17:01)
[2019-03-27] MEDS ORDERED: MAGNESIUM 2 G PREMIX 50 ML IV SCH (11:00)
[2019-03-27 14:10] LABS: NUCLEATED RED BLOOD CELLS 2 /100 WBC; PLATELET ESTIMATE NORMAL
[2019-03-27] MEDS: SENNOSIDES 8.6MG TABLET PO SCH (20:39)
[2019-03-27] MEDS: INSULIN GLARGINE UD 100 UNITS/ML SYR SUBCUT SCH (21:01)
[2019-03-27] MEDS: ATORVASTATIN CALCIUM 40MG TABLET PO SCH (21:01)
[2019-03-28] VITALS (11 sets, daily range): BP systolic 90–118; BP diastolic 55–80
[2019-03-28] MEDS: IPRATROPIUM/ALBUTEROL 0.5-3(2.5)MG/3ML NEB HHN SCH ×7 (01:06→23:57)
[2019-03-28] MEDS: INSULIN LISPRO 100 UNITS/ML SUBCUT SCH ×6 (04:53→21:07)
[2019-03-28] MEDS: BLOOD SUGAR DIAGNOSTIC STRIP TEST SCH ×5 (04:53→20:00)
[2019-03-28] MEDS: LACTULOSE 20G/30ML UDC PO SCH ×3 (06:00→21:08)
[2019-03-28 07:29] LABS: HEMATOCRIT. 29.1 % (42.0-52.0); HEMOGLOBIN. 9.9 g/dL (14.0-18.0); MEAN CORPUSCULAR HEMOGLOBIN 30.2 pg (28.0-32.0); MEAN CORPUSCULAR VOLUME 88.4 fL (80.0-94.0); MEAN PLATELET VOLUME 7.8 fl (7.4-10.4); PLATELET 278 x1000/uL (130-400); RED BLOOD CELL COUNT 3.29 mill/uL (4.7-6.1); RED CELL DISTRIBUTION WIDTH 14.2 % (11.6-14.6)
[2019-03-28] MEDS: ASPIRIN 81MG TABLET PO SCH (08:05)
[2019-03-28] MEDS: DOCUSATE SODIUM 100MG CAPSULE PO SCH ×2 (08:05→16:59)
[2019-03-28] MEDS: FUROSEMIDE 40MG TABLET PO SCH (08:05)
[2019-03-28] MEDS: BACITRACIN 15GM TUBE TOP SCH ×2 (08:06→17:40)
[2019-03-28] MEDS: METOPROLOL TARTRATE 25MG TABLET PO SCH (08:07)
[2019-03-28 10:43] LABS: PLATELET ESTIMATE NORMAL
[2019-03-28] MEDS: SENNOSIDES 8.6MG TABLET PO SCH (20:28)
[2019-03-28] MEDS: ATORVASTATIN CALCIUM 40MG TABLET PO SCH (20:28)
[2019-03-28] MEDS: CARVEDILOL 3.125 MG TABLET PO SCH (20:28)
[2019-03-28] MEDS: INSULIN GLARGINE UD 100 UNITS/ML SYR SUBCUT SCH (21:07)
[2019-03-28] MEDS: OXYCODONE HCL/ACETAMINOPHEN 5/325MG TABLET PO PRN (21:49)
[2019-03-29] VITALS: BP 109/70
[2019-03-29 00:30] VITALS: BP 90/58
[2019-03-29] MEDS: BLOOD SUGAR DIAGNOSTIC STRIP TEST SCH ×6 (03:47→20:00)
[2019-03-29] MEDS: INSULIN LISPRO 100 UNITS/ML SUBCUT SCH ×6 (03:49→22:05)
[2019-03-29 04:00] VITALS: BP 106/65
[2019-03-29] MEDS: IPRATROPIUM/ALBUTEROL 0.5-3(2.5)MG/3ML NEB HHN SCH ×5 (04:20→20:59)
[2019-03-29] MEDS: LACTULOSE 20G/30ML UDC PO SCH ×4 (06:00→21:20)
[2019-03-29 06:54] LABS: BASOPHILS % 0.5 % (0.0-2.0); EOSINOPHILS % 0.1 % (0.0-5.0); HEMATOCRIT. 30.4 % (42.0-52.0); HEMOGLOBIN. 10.5 g/dL (14.0-18.0); LYMPHOCYTES % 10.8 % (20.0-50.0); MEAN CORPUSCULAR HEMOGLOBIN 30.4 pg (28.0-32.0); MEAN CORPUSCULAR VOLUME 88.2 fL (80.0-94.0); MONOCYTES % 11.9 % (2.0-8.0); NEUTROPHILS % 76.7 % (40.0-76.0); PLATELET 261 x1000/uL (130-400); RED BLOOD CELL COUNT 3.44 mill/uL (4.7-6.1); RED CELL DISTRIBUTION WIDTH 14.3 % (11.6-14.6)
[2019-03-29] MEDS: OXYCODONE HCL/ACETAMINOPHEN 5/325MG TABLET PO PRN (09:28)
[2019-03-29] MEDS: FUROSEMIDE 40MG TABLET PO SCH (09:31)
[2019-03-29] MEDS: DOCUSATE SODIUM 100MG CAPSULE PO SCH ×2 (09:31→09:39)
[2019-03-29] MEDS: CARVEDILOL 3.125 MG TABLET PO SCH ×2 (09:31→21:20)
[2019-03-29] MEDS: ASPIRIN 81MG TABLET PO SCH (09:31)
[2019-03-29] MEDS: BACITRACIN 15GM TUBE TOP SCH ×2 (09:39→17:00)
[2019-03-29 20:00] VITALS: BP 119/64
[2019-03-29] MEDS: ATORVASTATIN CALCIUM 40MG TABLET PO SCH (21:19)
[2019-03-29] MEDS: SENNOSIDES 8.6MG TABLET PO SCH (21:20)
[2019-03-29] MEDS: INSULIN GLARGINE UD 100 UNITS/ML SYR SUBCUT SCH (22:06)
[2019-03-30] VITALS: BP 115/65
[2019-03-30] MEDS: IPRATROPIUM/ALBUTEROL 0.5-3(2.5)MG/3ML NEB HHN SCH ×6 (00:35→20:00)
[2019-03-30 04:00] VITALS: BP 129/75
[2019-03-30] MEDS: BLOOD SUGAR DIAGNOSTIC STRIP TEST SCH ×7 (04:00→23:54)
[2019-03-30] MEDS: INSULIN LISPRO 100 UNITS/ML SUBCUT SCH ×6 (04:00→22:09)
[2019-03-30] MEDS: LACTULOSE 20G/30ML UDC PO SCH ×3 (05:24→22:09)
[2019-03-30] MEDS: ACETAMINOPHEN 325MG TABLET PO PRN (06:48)
[2019-03-30 08:00] VITALS: BP 100/66
[2019-03-30] MEDS: CARVEDILOL 3.125 MG TABLET PO SCH ×2 (09:00→20:15)
[2019-03-30] MEDS: DOCUSATE SODIUM 100MG CAPSULE PO SCH ×2 (09:45→16:22)
[2019-03-30] MEDS: ASPIRIN 81MG TABLET PO SCH (09:45)
[2019-03-30] MEDS ORDERED: TRAMADOL 50MG TABLET PO PRN (09:45)
[2019-03-30] MEDS: FUROSEMIDE 40MG TABLET PO SCH (09:45)
[2019-03-30 12:00] VITALS: BP 105/68
[2019-03-30 12:03] LABS: BASOPHILS % 0.9 % (0.0-2.0); HEMATOCRIT. 28.3 % (42.0-52.0); HEMOGLOBIN. 9.8 g/dL (14.0-18.0); LYMPHOCYTES % 17.4 % (20.0-50.0); MEAN CORPUSCULAR HEMOGLOBIN 30.3 pg (28.0-32.0); MEAN CORPUSCULAR VOLUME 87.2 fL (80.0-94.0); NEUTROPHILS % 70.7 % (40.0-76.0); PLATELET 219 x1000/uL (130-400); RED BLOOD CELL COUNT 3.24 mill/uL (4.7-6.1); RED CELL DISTRIBUTION WIDTH 13.9 % (11.6-14.6)
[2019-03-30] MEDS: BACITRACIN 15GM TUBE TOP SCH ×2 (14:20→16:22)
[2019-03-30 16:00] VITALS: BP 100/54
[2019-03-30] MEDS ORDERED: FUROSEMIDE 40MG/4ML VIAL IVP NR (18:15)
[2019-03-30] MEDS ORDERED: MAGNESIUM 4 G PREMIX 100 ML IV SCH (19:00)
[2019-03-30 20:00] VITALS: BP 110/66
[2019-03-30] MEDS: ATORVASTATIN CALCIUM 40MG TABLET PO SCH (20:13)
[2019-03-30] MEDS: SENNOSIDES 8.6MG TABLET PO SCH (20:13)
[2019-03-30] MEDS: INSULIN GLARGINE UD 100 UNITS/ML SYR SUBCUT SCH (22:11)
[2019-03-31] VITALS: BP 100/53
[2019-03-31 04:00] VITALS: BP 118/63
[2019-03-31] MEDS: BLOOD SUGAR DIAGNOSTIC STRIP TEST SCH ×4 (04:00→16:25)
[2019-03-31] MEDS: INSULIN LISPRO 100 UNITS/ML SUBCUT SCH ×5 (04:00→16:33)
[2019-03-31 06:51] LABS: BASOPHILS % 0.2 % (0.0-2.0); EOSINOPHILS % 0.1 % (0.0-5.0); HEMATOCRIT. 30.5 % (42.0-52.0); HEMOGLOBIN. 10.4 g/dL (14.0-18.0); LYMPHOCYTES % 10.1 % (20.0-50.0); MEAN CORPUSCULAR HEMOGLOBIN 29.3 pg (28.0-32.0); MEAN CORPUSCULAR VOLUME 86.2 fL (80.0-94.0); MEAN PLATELET VOLUME 8.3 fl (7.4-10.4); MONOCYTES % 10.2 % (2.0-8.0); NEUTROPHILS % 79.4 % (40.0-76.0); PLATELET 219 x1000/uL (130-400); RED BLOOD CELL COUNT 3.53 mill/uL (4.7-6.1); RED CELL DISTRIBUTION WIDTH 14.2 % (11.6-14.6)
[2019-03-31] MEDS: LACTULOSE 20G/30ML UDC PO SCH ×2 (06:57→15:14)
[2019-03-31 07:06] LABS: CHLORIDE 98 mEq/L (98-107)
[2019-03-31 08:00] VITALS: BP 136/80
[2019-03-31] MEDS: DOCUSATE SODIUM 100MG CAPSULE PO SCH ×2 (08:36→17:00)
[2019-03-31] MEDS: CARVEDILOL 3.125 MG TABLET PO SCH (08:36)
[2019-03-31] MEDS: ASPIRIN 81MG TABLET PO SCH (08:37)
[2019-03-31] MEDS: BACITRACIN 15GM TUBE TOP SCH ×2 (08:37→17:13)
[2019-03-31] MEDS: FUROSEMIDE 40MG TABLET PO SCH (08:37)
[2019-03-31] MEDS: IPRATROPIUM/ALBUTEROL 0.5-3(2.5)MG/3ML NEB HHN SCH ×4 (08:53→20:48)
[2019-03-31 12:00] VITALS: BP 94/66
[2019-03-31] MEDS ORDERED: FUROSEMIDE 40MG/4ML VIAL IVP SCH (14:00)
[2019-03-31] MEDS ORDERED: MAGNESIUM 4 G PREMIX 100 ML IV SCH (15:00)
[2019-03-31 16:00] VITALS: BP 126/69
[2019-03-31] MEDS: ACETAMINOPHEN 325MG TABLET PO PRN (16:25)
[2019-03-31 20:24] VITALS: BP 118/71
== END 2019-03-31 21:05 | disposition home or self-care (01) | DRG 166 ==
LOC: 3WST 14:45 → CVICU 03-18 07:45 → 3WST 03-22 18:04 → 6EST 03-29 00:10
PROVIDERS: ADMIT Internal Medicine; ATTEND Internal Medicine
PROC: 02100Z9 Bypass Coronary Artery, One Artery from Left Internal Mammary, Open Approach (ICD-10-PCS; principal; 2019-03-18)
PROC: 021309W Bypass Coronary Artery, Four or More Arteries from Aorta with Autologous Venous Tissue, Open Approach (ICD-10-PCS; 2019-03-18)
PROC: 5A1221Z Performance of Cardiac Output, Continuous (ICD-10-PCS; 2019-03-18)
PROC: 06BP4ZZ Excision of Right Saphenous Vein, Percutaneous Endoscopic Approach (ICD-10-PCS; 2019-03-18)
DX: I25.10 Atherosclerotic heart disease of native coronary artery without angina pectoris (principal); J96.90 Respiratory failure, unspecified, unspecified whether with hypoxia or hypercapnia; N17.0 Acute kidney failure with tubular necrosis; I11.0 Hypertensive heart disease with heart failure; I50.42 Chronic combined systolic (congestive) and diastolic (congestive) heart failure; E88.81 Metabolic syndrome and other insulin resistance; E83.42 Hypomagnesemia; E87.1 Hypo-osmolality and hyponatremia; I49.5 Sick sinus syndrome; E11.9 Type 2 diabetes mellitus without complications; E66.09 Other obesity due to excess calories; I25.5 Ischemic cardiomyopathy; E78.5 Hyperlipidemia, unspecified; I45.10 Unspecified right bundle-branch block; I49.1 Atrial premature depolarization; E78.00 Pure hypercholesterolemia, unspecified; D64.9 Anemia, unspecified; I42.0 Dilated cardiomyopathy; K59.00 Constipation, unspecified; L03.116 Cellulitis of left lower limb; L03.115 Cellulitis of right lower limb; G93.40 Encephalopathy, unspecified; M51.9 Unspecified thoracic, thoracolumbar and lumbosacral intervertebral disc disorder; I48.91 Unspecified atrial fibrillation; Z75.1 Person awaiting admission to adequate facility elsewhere; Z95.0 Presence of cardiac pacemaker; Z82.49 Family history of ischemic heart disease and other diseases of the circulatory system; Z79.82 Long term (current) use of aspirin; Z87.891 Personal history of nicotine dependence; Z79.4 Long term (current) use of insulin; I25.2 Old myocardial infarction; Z79.899 Other long term (current) drug therapy; Z83.3 Family history of diabetes mellitus; E83.52 Hypercalcemia; Z68.35 Body mass index [BMI] 35.0-35.9, adult; N99.0 Postprocedural (acute) (chronic) kidney failure; Y83.2 Surgical operation with anastomosis, bypass or graft as the cause of abnormal reaction of the patient, or of later complication, without mention of misadventure at the time of the procedure; Y71.3 Surgical instruments, materials and cardiovascular devices (including sutures) associated with adverse incidents; Y92.230 Patient room in hospital as the place of occurrence of the external cause
CPT/HCPCS: 36415; 36600; 71045; 76770; 80048; 80053; 80202; 81003; 82043; 82375; 82570; 82805; 82962; 83735; 83935; 84100; 84132; 84300; 84443; 84480; 84484; 84550; 85025; 85027; 85347; 85520; 86850; 86900; 86920; 87070; 93005; 93306; 94640; 97110; 97116; 97162; 97166; 97530; 97535; A4216; C1729; C1751; C1758; C9113; J0690; J1265; J1644; J1815; J1885; J1940; J2250; J2270; J2370; J2405; J2440; J2543; J2704; J2710; J2720; J3010; J3370; J3475; J3480; J3490; J7030; J7040; J7050; J7060; J7626; L3908; P9041; P9047; Q9957